=== PATIENT | female | born 1990 | race Caucasian/White ===

== ENCOUNTER 2019-08-19 17:02 | Observation (INO) | payer OTHER ==
--- OUTSIDE RECORDS SUMMARY | 2019-08-19 17:05 | XMS REPORT | Continuity of Care Document ---
:1990 Author Organization [facility] t Address [address] [place] [address] Care Team Providers Name Role Phone Unavailable Unavailable Unavailable Payers Payer Name Policy Type Policy Number Effective Date Expiration Date S ource Problems This patient has no known problems. Allergies, Adverse Reactions, Alerts Allergy Allergy Status Severity Reaction(s) Onset Inactive Treating Comm ents Source Name Type Date Date Clinician No Known DA Active U RYDER Allergie 03-01 [facility] 00:00: [facility] 00 [facility] Medications This patient has no known medications. Procedures This patient has no known procedures. Results Test Description Test Time Test Comments Results Result [facility] e Comments SURGICAL SPECIMENS 2019-04-18 11:09:00 --------RUN DATE: 04/18/19 [facility] - LAB PAGE 1 RUN TIME: 1109 Specimen Inquiry RUN USER: INTERFACE --------PATIENT: ROSALVA ALONZO LOC: LeonaN POD B U #: [id number] AGE/SX: 29/F ROOM: [facility] RE04/16/19[facility] DR: Shane Navarro MD : 90 BED: 1 DIS: STATUS: ADM IN TLOC: -------- SPEC #: [id number] RECD: 04/16/19 STATUS: BEBE REQ #: [id number] JAMILAH: 04/16/19-[address] [facility] [address]: Shane Navarro MD ENTERED: 04/16/19-1201 SP TYPE: SURG OTHR DR: Sara Mai MD ORDERED: PATHGM5/2, PATH SPEC, H E STAIN/2, IRON STAIN, IHC AB STAIN I, AFB STAIN, PAS STAIN, TRICHROME STAIN, PAS WO.STAIN HISTOLOGY: TISSUE ID BLK PCS CAMILO LEV / PROCEDURE DISPOSITION ____ ___ ___ ___ ___ LIVER WEDGE BX A 1 1 STOMACH RESECT B 1 1 TISSUES: A. LIVER WEDGE BIOPSY - Liver Biopsy (Abdomen) B. STOMACH SUBTOTAL RESECTION - Partial Stomach (Abdomen) CLINICAL HISTORY Morbid Obesity COMMENT Sections of specimen (A) demonstrate liver parenchyma with mild steatosis (approximately 30%). Mild nonspecific inflammation, predominantly consisting of lymphocytes, is identified within portal tracts. A small amount of nonspecific lobular inflammation, predominantly consisting of lymphocytes and rare nonspecific histiocyte aggregates, is also noted. No iron accumulation is identified on an iron stain. No PAS positive diastase resisting globules are identified (PAS stains with and without diastase). A Trichrome stain is performed. Mild fibrosis around some central veins is identified. No fungal elements are identified on a PAS stain. An AFB stain is negative. The findings of the special stains support the morphologic interpretation. FINAL DIAGNOSIS A-LIVER, WEDGE BIOPSY: - Liver parenchyma with mild steatosis. - See comment. B-STOMACH, PARTIAL GASTRECTOMY: - Portion of stomach with mild chronic gastritis. - Negative for H. pylori organisms (H. pylori immunostain). CONTINUED ON NEXT PAGE --------RUN DATE: 04/18/19 [facility] - LAB PAGE 2 RUN TIME: 1109 Specimen Inquiry RUN USER: INTERFACE --------SPEC #: [id number] PATIENT: ROSALVA ALONZO #[id number] (Continued) GROSS DESCRIPTION A-LIVER BIOPSY: The specimen consists of a single piece of red-moreno tissue which measures 1 x 0.5 x 0.5 cm. The specimen is sectioned and submitted in its entirety in a single cassette. B-PARTIAL STOMACH: The specimen consists of a portion of stomach which measures 16 x 3.5 x 2 cm. The serosal surface is partially disrupted, but otherwise is grossly unremarkable. The specimen is sectioned. No gross lesions or masses are identified. Superintendent Tests sections are submitted in a single cassette. RAB/eb MICROSCOPIC DESCRIPTION Microscopic performed. Signed SIGNATURE ON FILE BeachLety MD 04/18/19 1109 -------- END OF REPORT BASIC METABOLIC PANEL 2019-04-17 04:09:00 Test Item Value Reference Range Interpretation Comme nts SODIUM (test code = NA) 136 MMOL/L 136-143 N POTASSIUM (test code = K) 3.9 MMOL/L 3.5-5.1 N CHLORIDE (test code = CL) 103 MMOL/L 98-107 N CARBON DIOXIDE (test code = 21 mmol/L 24-31 L CO2) GLUCOSE (test code = GLU) 125 mg/dL 70-104 H BLOOD UREA NITROGEN (test 5.2 MG/DL 7.0-21.0 L code = BUN) GLOMERULAR FILTRATION RATE >=60 max estimate >60 The estimated glomerular (test code = GFR) filtration rate is computed usingpatient ra ce, age (>18), sex, and serum creatinine. If anyof the neede d data elements are mi ssing the Laboratory clint ot compute an estimation of t he glomerular filtration rate . CREATININE (test code = 0.6 mg/dL 0.8-1.5 L CREAT) CALCIUM (test code = CA) 8.1 mg/dL 8.8-10.2 L [id number] 04:09:00 Test Item Value Reference Range Interpretation Comments MAGNESIUM (test code = MAG) 2.0 mg/dL 1.4-2.6 N [id number] 04:09:00 Test Item Value Reference Range Interpretation Comments PHOSPHOROUS (test code = PHOS) 2.0 mg/dL 2.7-4.5 L CBC W/AUTO [id number] 03:49:00 Test Item Value Reference Range Interpretation Comments WHITE BLOOD CELL (test code = 9.2 x10 3/uL 4.8-10.8 N WBC) RED BLOOD CELL (test code = 4.06 x10 6/uL 4.20-5.40 L RBC) HEMOGLOBIN (test code = HGB) 12.0 g/dL 14.5-20 L HEMATOCRIT (test code = HCT) 37.4 % 37.0-47.0 N MEAN CELL VOLUME (test code = 92.1 fL 81.0-99.0 N MCV) MEAN CELL HGB (test code = MCH) 29.6 pg 27-31 N MEAN CELL HGB CONCENTRATION 32.1 G/DL 33-36.5 L (test code = MCHC) RED CELL DISTRIBUTION WIDTH 13.3 % 12.9-16.9 N (test code = RDW) PLATELET COUNT (test code = 301 150-440 N PLT) MEAN PLATELET VOLUME (test code 9.5 fL 8.9-12.4 N = MPV) NEUTROPHIL % (test code = NT%) 70.1 % 42.2-75.2 N LYMPHOCYTE % (test code = LY%) 21.2 % 20.5-51.1 N MONOCYTE % (test code = MO%) 7.7 % 1.7-9.3 N EOSINOPHIL % (test code = EO%) 0.5 % 0.0-7.0 N BASOPHIL % (test code = BA%) 0.3 % 0-2.5 N NEUTROPHIL # (test code = NT#) 6.46 x10 3/uL 1.80-7.70 N LYMPHOCYTE # (test code = LY#) 1.96 x10 3/uL 1.00-4.80 N MONOCYTE # (test code = MO#) 0.71 x10 3/uL 0.00-0.80 N EOSINOPHIL # (test code = EO#) 0.05 x10 3/uL 0.00-0.45 N BASOPHIL # (test code = BA#) 0.03 x10 3/uL 0.0-0.20 N COMPREHENSIVE METABOLIC [id number] 13:23:00 Test Item Value Reference Range Interpretation Comments SODIUM (test code = 141 MMOL/L 136-143 N NA) POTASSIUM (test 4.2 MMOL/L 3.5-5.1 N code = K) CHLORIDE (test code 101 MMOL/L 98-107 N = CL) CARBON DIOXIDE 23 mmol/L 24-31 L (test code = CO2) GLUCOSE (test code 99 mg/dL 70-104 N = GLU) BLOOD UREA NITROGEN 11.5 MG/DL 7.0-21.0 N (test code = BUN) GLOMERULAR >=60 max >60 The estimated FILTRATION RATE estimate glomerular (test code = GFR) filtration rate is computed usingpatient ra ce, age (>18), sex, and serum creatinin e. If anyof the ne eded data elements a re missing the Laboratory clint ot compute an estimation of t he glomerular filtration rate . CREATININE (test 0.8 mg/dL 0.8-1.5 N code = CREAT) TOTAL PROTEIN (test 6.4 g/dL 6.3-8.3 N code = PROT) ALBUMIN (test code 4.5 G/DL 3.5-5.0 N = ALB) CALCIUM (test code 9.9 mg/dL 8.8-10.2 N = CA) BILIRUBIN TOTAL 0.3 mg/dL 0.2-1.0 N (test code = BILT) SGOT/AST (test code 29 IU/L 10-34 N = AST) SGPT/ALT (test code 50 U/L 10-36 H = ALT) ALKALINE 74 U/L 32-104 N PHOSPHATASE (test code = ALKP) PROTHROMBIN [id number] 13:22:00 Test Item Value Reference Range Interpretation Comments PROTHROMBIN TIME 11.6 SECONDS 10.3-12.9 N PATIENT (test code = PTP) INTERNATIONAL 1.00 INR UNIT 0.9-1.11 N The INR is us eful only NORMAL RATIO (test for monit oring code = INR) anticoagulant therapy.It may be unreliable in t he initial phase o f antigoagulation and in unstable patien ts. Indication for Anticoagulation Recommend ed INR 1. Prevention o f venous thomboembolism 2.0-3.0in high -risk patients; treat ment of venousthrombosi s and pulmonary embol ism aftera course o f heparin; preven tion of systemicembolis m in a variety of cond itions, including atria l fibrillation an d prothetic tissu e heart valves, 2. Pros thetic mechanical hear t valves; 2.5-3.5recurren t systemic emboli sm. THROMBOPLASTIN TIME [id number] 13:22:00 Test Item Value Reference Range Interpretation Comments THROMBOPLASTIN TIME 31.4 SECONDS 26.0-35.9 N INTERPRE TATIVE PARTIAL (test code = DATA: erapeutic PTT) range: Unfractionated heparin:47 - 71 seconds Argatroban:1.5 to 3 times the basel ine PTT UR HCG [id number] 13:02:00 Test Item Value Reference Range Interpretation Comments UR HCG QUAL (test code = HCGQLU) NEGATIVE NEGATIVE CBC W/AUTO [id number] 12:48:00 Test Item Value Reference Range Interpretation Comments WHITE BLOOD CELL (test code = 5.8 x10 3/uL 4.8-10.8 N WBC) RED BLOOD CELL (test code = 4.40 x10 6/uL 4.20-5.40 N RBC) HEMOGLOBIN (test code = HGB) 13.1 g/dL 14.5-20 L HEMATOCRIT (test code = HCT) 40.6 % 37.0-47.0 N MEAN CELL VOLUME (test code = 92.3 fL 81.0-99.0 N MCV) MEAN CELL HGB (test code = MCH) 29.8 pg 27-31 N MEAN CELL HGB CONCENTRATION 32.3 G/DL 33-36.5 L (test code = MCHC) RED CELL DISTRIBUTION WIDTH 13.8 % 12.9-16.9 N (test code = RDW) PLATELET COUNT (test code = 314 150-440 N PLT) MEAN PLATELET VOLUME (test code 10.0 fL 8.9-12.4 N = MPV) NEUTROPHIL % (test code = NT%) 61.1 % 42.2-75.2 N LYMPHOCYTE % (test code = LY%) 29.4 % 20.5-51.1 N MONOCYTE % (test code = MO%) 5.2 % 1.7-9.3 N EOSINOPHIL % (test code = EO%) 3.3 % 0.0-7.0 N BASOPHIL % (test code = BA%) 0.7 % 0-2.5 N NEUTROPHIL # (test code = NT#) 3.53 x10 3/uL 1.80-7.70 N LYMPHOCYTE # (test code = LY#) 1.70 x10 3/uL 1.00-4.80 N MONOCYTE # (test code = MO#) 0.30 x10 3/uL 0.00-0.80 N EOSINOPHIL # (test code = EO#) 0.19 x10 3/uL 0.00-0.45 N BASOPHIL # (test code = BA#) 0.04 x10 3/uL 0.0-0.20 N SURGICAL [id number] 15:22:00 RUN DATE: 03/05/19 [facility] - LAB PAGE 1 RUN TIME: 1522 Specimen Inquiry RUN USER: INTERFACE PATIENT: ROSALVA ALONZO LOC: NONA U #: [id number] AGE/SX: 28/F ROOM: RE03/02/19REG DR: Shane Navarro MD : 90 BED: DIS: STATUS: [facility] TLOC: SPEC #: [id number] RECD: 03/02/19 STATUS: BEBE REQ #: [id number] JAMILAH: 03/02/19 [facility] DR: Shane Navarro MD ENTERED: 03/02/19 SP TYPE: SURG OTHR DR: ORDERED: PATHGM4/2, PATH SPEC, H E STAIN/2 HISTOLOGY: TISSUE ID BLK PCS CAMILO LEV / PROCEDURE DISPOSITION ____ ___ ___ ___ ___ ANTRUM BIOPSYA 1 3 1 GE JUNCTION B 1 3 1 TISSUES: A. ANTRUM BIOPSY - Antrum Bx B. GASTRO-ESOPHAGEAL JUNCTION BIOPSY - GE Junction Bx CLINICAL HISTORY GERD FINAL DIAGNOSIS A-STOMACH, ANTRUM, BIOPSY: - Oxyntic type gastric mucosa with no specific diagnostic alteration. - No Helicobacter pylori-like microorganisms identified on routine H E stain. - No intestinal metaplasia, dysplasia or malignancy identified. B-GE JUNCTION, BIOPSY: - Squamous mucosa with features compatible with reflux. - No glandular epithelium or intestinal metaplasia identified. GROSS DESCRIPTION A-ANTRUM BIOPSY: Two fragments of pink soft tissue, 0.3 cm each. Entirely submitted in "A". B-GE JUNCTION BIOPSY: Two fragments of pink soft tissue, 0.2 and 0.4 cm. Entirely submitted in "B". YG/eb MICROSCOPIC DESCRIPTION Microscopic performed. Signed SIGNATURE ON FELIZ BlancGeorgiana 03/05/19 1522 END OF REPORT UR HCG [id number] 08:16:00 Test Item Value Reference Range Interpretation Comments UR HCG QUAL (test code = HCGQLU) NEGATIVE NEGATIVE
[2019-08-19 17:54] VITALS: BP 162/75
[2019-08-19 17:55] VITALS: TEMP 98.8
--- NOTE | 2019-08-19 18:01 | P.HP ---
Certification for Inpatient Patient admitted to: Observation With expected LOS: <2 Midnights Patient will require the following post-hospital care: None Practitioner: I am a practitioner with admitting privileges, knowledge of patient current condition, hospital course, and medical plan of care. Services: Services provided to patient in accordance with Admission requirements found in Title 42 Section 412.3 of the Code of Federal Regulations Patient History Date of Service: 08/19/19 Reason for admission: Cough and fever History of Present Illness: 29-year-old with history of ADHD admitted for cough, fever at home of 100.7, worsening symptoms since the last 3 days, family members including kids with similar symptoms. Presented to [facility] and was noted to have bilateral infiltrates on chest x-ray. Vital signs remained stable including sat 97% on room air. Patient was transferred there on the ER physician's insistent because of possibility of wheezing. On presentation patient is seen ambulating in the room. She is talking without no distress. O2 sats remained above 96% on room air. She is not tachypneic. She will be discharged home on Zithromax/steroid/guaifenesin and advice to follow up with PCP in the next 3-5 days. Advised to dose practised social distancing as well as wear mask around the house. Patient was advised to come back to the ER if worsening shortness of breath Home Medications: Albuterol Sulfate [Albuterol Sulfate Hfa] 8.5 gm IH Q6HR PRN #1 hfa.aer.ad 08/19/19 Azithromycin [Zithromax] 500 mg PO DAILY #3 tablet 08/19/19 Dexamethasone [Decadron] 6 mg PO BID #14 tablet 08/19/19 Guaifenesin [Mucus ER] 1,200 mg PO BID #14 tab.er.12h 08/19/19 Guaifenesin [Mucus Relief] 400 mg PO Q4HR PRN #30 tablet 08/19/19 Review of Systems 10-point ROS is otherwise unremarkable Physical Examination - Vital Signs Temperature: 98.8 F Blood Pressure: 162/75 Pulse: 90 Respirations: 17 Pulse Ox (%): 98 - Physical Exam General: Alert, In no apparent distress, Obese HEENT: Atraumatic, Normocephalic, PERRLA Neck: Supple, 2+ carotid pulse no bruit, JVD not distended Respiratory: Normal air movement, Expiratory wheezes (left base with cough spell) Cardiovascular: Normal pulses, Regular rate/rhythm, Normal S1 S2 Gastrointestinal: Normal bowel sounds, Soft and benign, Non-distended Musculoskeletal: No clubbing, No swelling Neurological: Normal speech, Normal strength at 5/5 x4 extr, Normal tone Assessment and Plan - Problems (Diagnosis) (1) Pneumonia due to 2019 novel coronavirus Current Visit: Yes Status: Acute - Advance Directives Does patient have a Living Will: No Does patient have a Durable POA for Healthcare: No Physician Review: Patient Assessed, Agree with Above Assessment and Plan Physician Review Additional Text: # B/l Pneumonia - noted infiltrate on CT scan -since stable symptoms , pt can be dc home - start steroids /Albuterol MDI prn /zithromax dailyx3 /Guaifenesin prn - Advised to return to ER if worsening SOB Time Spent Managing Pts Care (In Minutes): 60
[2019-08-19 18:03] VITALS: O2SAT 98; BMI 34.2
[2019-08-19] MEDS ORDERED: AMLODIPINE 5 MG TAB PO ONE (18:06)
--- NOTE | 2019-08-19 18:07 | P.DS ---
Admission Date: 08/19/19 Discharge Date: 08/19/19 Disposition: ROUTINE DISCHARGE Discharge Condition: FAIR Reason for Admission: Cough and fever - Problems (1) Pneumonia due to 2019 novel coronavirus Current Visit: Yes Status: Acute Brief History of Present Illness: 29-year-old with history of ADHD admitted for cough, fever at home of 100.7, worsening symptoms since the last 3 days, family members including kids with similar symptoms. Presented to [facility] and was noted to have bilateral infiltrates on chest x-ray. Vital signs remained stable including sat 97% on room air. Patient was transferred there on the ER physician's insistent because of possibility of wheezing. On presentation patient is seen ambulating in the room. She is talking without no distress. O2 sats remained above 96% on room air. She is not tachypneic. She will be discharged home on Zithromax/steroid/guaifenesin and advice to follow up with PCP in the next 3-5 days. Advised to dose practised social distancing as well as wear mask around the house. Patient was advised to come back to the ER if worsening shortness of breath Hospital Course: As above Vital Signs/Physical Exam: Temp Pulse Resp BP Pulse Ox 98.8 F 90 17 162/75 H 98 08/19/19 18:04 08/19/19 18:04 08/19/19 18:04 08/19/19 18:04 08/19/19 18:04 General: Alert, In no apparent distress, Oriented x3, Obese HEENT: Atraumatic, Normocephalic, PERRLA Neck: Supple, 2+ carotid pulse no bruit, JVD not distended Respiratory: Normal air movement, Expiratory wheezes (left base) Cardiovascular: Normal pulses, Regular rate/rhythm, Normal S1 S2 Gastrointestinal: Normal bowel sounds, Soft and benign, Non-distended Musculoskeletal: No clubbing, No swelling Neurological: Normal speech, Normal strength at 5/5 x4 extr Home Medications: Albuterol Sulfate [Albuterol Sulfate Hfa] 8.5 gm IH Q6HR PRN #1 hfa.aer.ad 08/19/19 Amlodipine Besylate [Norvasc] 5 mg PO DAILY #30 tablet 08/19/19 Azithromycin [Zithromax] 500 mg PO DAILY #3 tablet 08/19/19 Dexamethasone [Decadron] 6 mg PO BID #14 tablet 08/19/19 Guaifenesin [Mucus ER] 1,200 mg PO BID #14 tab.er.12h 08/19/19 Guaifenesin [Mucus Relief] 400 mg PO Q4HR PRN #30 tablet 08/19/19 New Medications: Albuterol Sulfate [Albuterol Sulfate Hfa] 8.5 gm IH Q6HR PRN #1 hfa.aer.ad PRN Reason: Shortness Of Breath Dexamethasone [Decadron] 6 mg PO BID #14 tablet Guaifenesin [Mucus ER] 1,200 mg PO BID #14 tab.er.12h Guaifenesin [Mucus Relief] 400 mg PO Q4HR PRN #30 tablet PRN Reason: Cough Amlodipine Besylate [Norvasc] 5 mg PO DAILY #30 tablet Azithromycin [Zithromax] 500 mg PO DAILY #3 tablet Patient Discharge Instructions: -Follow PCP in 1 week Diet: Regular Activity: Ad lillian Time spent managing pt's care (in minutes): 35
== END 2019-08-19 19:32 | disposition home or self-care (01) ==
LOC: 4TH 17:02
PROVIDERS: ADMIT Internal Medicine; ATTEND Internal Medicine
DX: U07.1 COVID-19 (principal); J12.89 Other viral pneumonia; F90.9 Attention-deficit hyperactivity disorder, unspecified type; Z79.899 Other long term (current) drug therapy
CPT/HCPCS: G0379; G0378 ×2

== ENCOUNTER 2019-08-19 20:17 | Emergency (ER) | payer OTHER ==
--- OUTSIDE RECORDS SUMMARY | 2019-08-19 20:19 | XMS REPORT | Continuity of Care Document ---
:1990 Author Organization [facility] t Address [address] [place] [address] Care Team Providers Name Role Phone Unavailable Unavailable Unavailable Payers Payer Name Policy Type Policy Number Effective Date Expiration Date S ource Problems This patient has no known problems. Allergies, Adverse Reactions, Alerts Allergy Allergy Status Severity Reaction(s) Onset Inactive Treating Comm ents Source Name Type Date Date Clinician No Known DA Active U RYDER Allergie 03-01 [facility] 00:00: [facility] 00 [facility] Medications This patient has no known medications. Procedures This patient has no known procedures. Results Test Description Test Time Test Comments Results Result [facility] e Comments SURGICAL SPECIMENS 2019-04-18 11:09:00 --------RUN DATE: 04/18/19 [facility] - LAB PAGE 1 RUN TIME: 1109 Specimen Inquiry RUN USER: INTERFACE --------PATIENT: ROSALVA ALONZO LOC: LeonaN POD B U #: [id number] AGE/SX: 29/F ROOM: [facility] RE04/16/19[facility] DR: Shane Navarro MD : 90 BED: 1 DIS: STATUS: ADM IN TLOC: -------- SPEC #: [id number] RECD: 04/16/19 STATUS: BEBE REQ #: [id number] JAMILAH: 04/16/19-1033 [facility] DR: Shane Navarro MD ENTERED: 04/16/19-1201 SP [...] CONTINUED ON NEXT PAGE --------RUN DATE: 04/18/19 [facility] - LAB PAGE 2 RUN TIME: 1109 Specimen Inquiry RUN USER: INTERFACE --------SPEC #: [id number] PATIENT: ROSALVA ALONZO #[id number] (Continued) GROSS DESCRIPTION A-LIVER BIOPSY: The specimen [...] No gross lesions or masses are identified. Assessment Manager sections are submitted in a single cassette. [...] code = CA) 8.1 mg/dL 8.8-10.2 L [id number] 04:09:00 Test Item Value Reference Range Interpretation Comments MAGNESIUM (test code = MAG) 2.0 mg/dL 1.4-2.6 N [id number] 04:09:00 Test Item Value Reference Range Interpretation Comments PHOSPHOROUS (test code = PHOS) 2.0 mg/dL 2.7-4.5 L CBC W/AUTO [id number] 03:49:00 Test Item Value Reference Range Interpretation [...] 0.03 x10 3/uL 0.0-0.20 N COMPREHENSIVE METABOLIC [id number] 13:23:00 Test Item Value Reference Range Interpretation [...] N PHOSPHATASE (test code = ALKP) PROTHROMBIN [id number] 13:22:00 Test Item Value Reference Range Interpretation [...] 2.5-3.5recurren t systemic emboli sm. THROMBOPLASTIN TIME [id number] 13:22:00 Test Item Value Reference Range Interpretation Comments THROMBOPLASTIN TIME 31.4 SECONDS 26.0-35.9 N INTERPRE TATIVE PARTIAL (test code = DATA: erapeutic PTT) range: Unfractionated heparin:47 - 71 seconds Argatroban:1.5 to 3 times the basel ine PTT UR HCG [id number] 13:02:00 Test Item Value Reference Range Interpretation Comments UR HCG QUAL (test code = HCGQLU) NEGATIVE NEGATIVE CBC W/AUTO [id number] 12:48:00 Test Item Value Reference Range Interpretation [...] BA#) 0.04 x10 3/uL 0.0-0.20 N SURGICAL [id number] 15:22:00 RUN DATE: 03/05/19 [facility] - LAB PAGE 1 RUN TIME: 1522 Specimen Inquiry RUN USER: INTERFACE PATIENT: ROSALVA ALONZO LOC: NONA U #: [id number] AGE/SX: 28/F ROOM: RE03/02/19REG DR: Shane Navarro MD : 90 BED: DIS: STATUS: [facility] TLOC: SPEC #: [id number] RECD: 03/02/19 STATUS: BEBE REQ #: [id number] JAMILAH: 03/02/19 [facility] DR: Shane Navarro MD ENTERED: 03/02/19 SP [...] 03/05/19 1522 END OF REPORT UR HCG [id number] 08:16:00 Test Item Value Reference Range Interpretation Comments UR HCG QUAL (test code = HCGQLU) NEGATIVE NEGATIVE
[2019-08-19] MEDS ORDERED: AZITHROMYCIN 250 MG TAB ONE (21:22)
[2019-08-19] MEDS ORDERED: LORAZEPAM 1 MG TABLET ONE (21:23)
[2019-08-19] MEDS ORDERED: IPRATROPIUM BROM 0.5MG/2.5ML ONE (21:23)
[2019-08-19] MEDS ORDERED: ALBUTEROL 2.5 MG/3 ML NEB SOL ONE (21:23)
[2019-08-19] MEDS ORDERED: dexAMETHasone 4 MG TAB ONE (21:23)
--- NOTE | 2019-08-19 21:57 | ER ---
Nurse's Notes [facility] Name: Dian Salinas Age: 29 yrs Sex: Female : 1990 Arrival Date: 08/19/2019 Time: 20:17 Bed 20 Private MD: Diagnosis: Pneumonia due to other specified infectious organisms Presentation: 08/18 20:27 Chief complaint: Patient states: I was seen at [place], they found bilateral pneumonia, sg the physician at [place] said that I should be admitted and sent me here to be a patient upstairs via ambulance. They tested me for COVID 19 as well. The doctor here upstairs came into my room and told me he was going to be discharging me to home without even assessing me, Im so short of breath and just weak, they expected me to walk across the street to get my car from [place], I cant breath well enough to walk that far, so I didn't know what else to do. Im just so sick. Coronavirus screen: Patient reports a cough. Patient reports shortness of breath or difficulty breathing. Patient reports a measured and/or subjective temperature greater than 100.4F. Patient denies travel on a cruise ship or to a country the [facility] currently lists as an affected area. Prior COVID test collected on: today. Ebola Screen: Patient negative for fever greater than or equal to 101.5 degrees Fahrenheit, and additional compatible Ebola Virus Disease symptoms Patient denies exposure to infectious person. Patient denies travel to an Ebola-affected area in the 21 days before illness onset. No symptoms or risks identified at this time. Initial Sepsis Screen: Does the patient meet any 2 criteria? RR > 20 per min. HR > 90 bpm. Does the patient have a suspected source of infection? No. Patient's initial sepsis screen is negative. Risk Assessment: Do you want to hurt yourself or someone else? Patient reports no desire to harm self or others. Onset of symptoms was August 19, 2019. Care prior to arrival: None. Transition of care: patient was not received from another setting of care. 20:27 Acuity: SAMUEL 3 sg 20:27 Method Of Arrival: Wheelchair sg Triage Assessment: 20:27 General: Appears uncomfortable, ill, Behavior is cooperative, agitated, crying. Neuro: sg Level of Consciousness is awake, alert, obeys commands, Oriented to person, place, time, situation, Speech is normal, Facial symmetry appears normal. Cardiovascular: Capillary refill is brisk in bilateral fingers. Respiratory: Airway is patent Respiratory effort is even, labored, Respiratory pattern is symmetrical, tachypnea pt is tearful and crying during triage the patient has mild shortness of breath. Derm: Skin is intact, Skin is clammy, Skin is pink, Skin temperature is cool. Musculoskeletal: Circulation, motion, and sensation intact. Range of motion: intact in all extremities. Historical: - Allergies: 20:36 No Known Allergies; sg - PMHx: 20:36 None; sg - PSHx: 20:36 Bariatric Sx; sg - Immunization history:: Adult Immunizations up to date. - Social history:: Smoking status: Patient denies any tobacco usage or history of. Patient/guardian denies using alcohol, street drugs, The patient lives with family. - Family history:: not pertinent. Screenin:53 Abuse screen: Denies threats or abuse. Denies injuries from another. Nutritional mg2 screening: No deficits noted. Tuberculosis screening: No symptoms or risk factors identified. Fall Risk None identified. Assessment: 20:47 General: Appears in no apparent distress. comfortable, Behavior is calm, cooperative. mg2 20:53 Pain: Complains of pain in head Pain currently is 5 out of 10 on a pain scale. Quality mg2 of pain is described as aching, Pain began gradually, Is intermittent. Neuro: Level of Consciousness is awake, alert, obeys commands, Oriented to person, place, time, situation. Cardiovascular: Capillary refill < 3 seconds Patient's skin is warm and dry. Respiratory: Reports shortness of breath at rest Airway is patent Respiratory effort is even, unlabored, Respiratory pattern is regular, symmetrical. GI: No signs and/or symptoms were reported involving the gastrointestinal system. : No signs and/or symptoms were reported regarding the genitourinary system. EENT: No signs and/or symptoms were reported regarding the EENT system. Derm: Skin is intact, is healthy with good turgor, Skin is pink, warm \T\ dry. normal. Musculoskeletal: Circulation, motion, and sensation intact. Capillary refill < 3 seconds. 21:10 Reassessment: at bedside assessing pt at this time, speaking with patient sg about POC and results that were faxed on pt behalf to facility from [place]. pt stated understanding of results and POC. 22:00 Reassessment: Patient appears in no apparent distress at this time. Patient is alert, sg oriented x 3, equal unlabored respirations, skin warm/dry/pink. spoke with pt in regards to transportation to [place] to personal vehicle, pt reports that her mother is here in the parking lot to transport pt to [place], pt to be dc to home Patient states feeling better. Vital Signs: 20:27 BP 152 / 101; Pulse 112; Resp 22; Temp 98.9; Pulse Ox 94% on R/A; Pain 5/10; sg 21:33 BP 116 / 72; Pulse 100; Resp 18; Temp 98.9; Pulse Ox 100% on Nebulizer Mask; mg2 22:08 BP 120 / 78; Pulse 98; Resp 18; Temp 98.5; Pulse Ox 100% on R/A; mg2 ED Course: 20:17 Patient arrived in ED. ds1 20:18 Abhijeet Wolf MD is Attending Physician. ma2 20:27 Arm band placed on. sg 20:35 Hamzah Sotelo, CHIQUI is Primary Nurse. mg2 20:36 Triage completed. sg 20:53 No provider procedures requiring assistance completed. mg2 20:54 Patient has correct armband on for positive identification. Pulse ox on. NIBP on. Door mg2 closed. Warm blanket given. Administered Medications: 21:33 Drug: Albuterol - atroVENT (3:1) (2.5 mg - 0.5 mg) 3 ml Route: Nebulizer; mg2 21:33 Drug: AZITHromycin 500 mg Route: PO; mg2 21:33 Drug: Ativan 1 mg Route: PO; mg2 21:33 Drug: Dexamethasone 10 mg Route: PO; mg2 Outcome: 21:57 Discharge ordered by . ma2 22:09 Discharged to home ambulatory. mg2 22:09 Condition: good 22:09 Discharge instructions given to patient, Instructed on discharge instructions, follow up and referral plans. Demonstrated understanding of instructions, follow-up care. 22:09 Patient left the ED. mg2 Signatures: Vicente Lauren RN RN sg PisanoTricia casillas ds1 Abhijeet Wolf MD MD ma2 Hamzah Sotelo RN RN mg2 Corrections: (The following items were deleted from the chart) 20:54 20:47 General: Appears mg2 mg2 20:55 20:36 BP 152 / 101; Pulse 112bpm; Resp 22bpm; Pulse Ox 94% RA; Pain 10; sg sg 08/19 01:30 08/18 22:10 BP 120 / 78; Pulse 98bpm; Resp 18bpm; Pulse Ox 100% RA; Temp 98.5F; mg2 mg2
--- NOTE | 2019-08-19 21:57 | EDPHYS ---
Physician Documentation [facility] Name: Dian Salinas Age: 29 yrs Sex: Female : 1990 Arrival Date: 08/19/2019 Time: 20:17 Bed 20 Private MD: ED Physician Abhijeet Wolf HPI: 08/18 21:48 This 29 yrs old Female presents to ER via Wheelchair with complaints of ma2 Breathing Difficulty - SOB. 21:48 The patient has shortness of breath during heavy activity. Onset: The symptoms/episode ma2 began/occurred gradually, 2 day(s) ago. Associated signs and symptoms: Pertinent positives: non-productive cough, Pertinent negatives: productive cough, fever, loss of consciousness, nausea. Severity of symptoms: At their worst the symptoms were mild in the emergency department the symptoms have improved. The patient has not experienced similar symptoms in the past. she was transferred from [place] for pneumonia and possible covid-19, evaluated by dr. ibarra and then was discharged after few hours. she was not happy as she was asked to walk to her car in [place] and she incurred charges for ambulance transfer and she did not need admission in the 1st place. i re-evaluated her, her symptoms are under controlled, has pneumonia on xray but lab are wnl and her vs are wnl, breathing comfortably, risk of admission outweigh benefit and she will better benefit from staying home. i explained that to her and apologized about her bad experience. . Historical: - Allergies: 20:36 No Known Allergies; sg - PMHx: 20:36 None; sg - PSHx: 20:36 Bariatric Sx; sg - Immunization history:: Adult Immunizations up to date. - Social history:: Smoking status: Patient denies any tobacco usage or history of. Patient/guardian denies using alcohol, street drugs, The patient lives with family. - Family history:: not pertinent. ROS: 21:54 All other systems are negative. ma2 21:54 Constitutional: Negative for fever, chills, and weight loss. ma2 21:54 All other systems are negative. Exam: 21:54 Constitutional: This is a well developed, well nourished patient who is awake, alert, ma2 and in no acute distress. Head/Face: Normocephalic, atraumatic. Eyes: Pupils equal round and reactive to light, extra-ocular motions intact. Lids and lashes normal. Conjunctiva and sclera are non-icteric and not injected. Cornea within normal limits. Periorbital areas with no swelling, redness, or edema. ENT: Nares patent. No nasal discharge, no septal abnormalities noted. Tympanic membranes are normal and external auditory canals are clear. Oropharynx with no redness, swelling, or masses, exudates, or evidence of obstruction, uvula midline. Mucous membranes moist. Neck: Trachea midline, no thyromegaly or masses palpated, and no cervical lymphadenopathy. Supple, full range of motion without nuchal rigidity, or vertebral point tenderness. No Meningismus. Chest/axilla: Normal chest wall appearance and motion. Nontender with no deformity. No lesions are appreciated. Cardiovascular: Regular rate and rhythm with a normal S1 and S2. No gallops, murmurs, or rubs. Normal PMI, no JVD. No pulse deficits. Respiratory: Lungs have equal breath sounds bilaterally, clear to auscultation and percussion. No rales, rhonchi or wheezes noted. No increased work of breathing, no retractions or nasal flaring. Abdomen/GI: Soft, non-tender, with normal bowel sounds. No distension or tympany. No guarding or rebound. No evidence of tenderness throughout. MS/ Extremity: Pulses equal, no cyanosis. Neurovascular intact. Full, normal range of motion. Neuro: Awake and alert, GCS 15, oriented to person, place, time, and situation. Cranial nerves II-XII grossly intact. Motor strength 5/5 in all extremities. Sensory grossly intact. Cerebellar exam normal. Normal gait. Vital Signs: 20:27 BP 152 / 101; Pulse 112; Resp 22; Temp 98.9; Pulse Ox 94% on R/A; Pain 5/10; sg 21:33 BP 116 / 72; Pulse 100; Resp 18; Temp 98.9; Pulse Ox 100% on Nebulizer Mask; mg2 22:08 BP 120 / 78; Pulse 98; Resp 18; Temp 98.5; Pulse Ox 100% on R/A; mg2 MDM: 20:18 Patient medically screened. ma2 21:54 Differential diagnosis: Bronchitis pneumonia, covid-19. Antibiotic administration: Not ma2 indicated. Data reviewed: vital signs, nurses notes. Counseling: I had a detailed discussion with the patient and/or guardian regarding: the historical points, exam findings, and any diagnostic results supporting the discharge/admit diagnosis, the presence of at least one elevated blood pressure reading (>120/80) during this emergency department visit, the need for outpatient follow up. 08/18 21:06 Order name: Recheck Vital Signs; Complete Time: 21:33 ma2 Administered Medications: 21:33 Drug: Albuterol - atroVENT (3:1) (2.5 mg - 0.5 mg) 3 ml Route: Nebulizer; mg2 21:33 Drug: AZITHromycin 500 mg Route: PO; mg2 21:33 Drug: Ativan 1 mg Route: PO; mg2 21:33 Drug: Dexamethasone 10 mg Route: PO; mg2 Disposition: 08/19/19 21:57 Discharged to Home. Impression: Pneumonia due to other specified infectious organisms. - Condition is Stable. - Discharge Instructions: Community-Acquired Pneumonia, Adult. - Medication Reconciliation Form, Thank You Letter, Antibiotic Education, Prescription Opioid Use form. - Follow up: Private Physician; When: Tomorrow; Reason: Continuance of care. Signatures: Vicente Lauren RN RN Abhijeet Wolf MD MD ma2 Hamzah Sotelo RN RN mg2 Corrections: (The following items were deleted from the chart) 22:09 21:57 08/19/2019 21:57 Discharged to Home. Impression: Pneumonia due to other specified mg2 infectious organisms. Condition is Stable. Forms are Medication Reconciliation Form, Thank You Letter, Antibiotic Education, Prescription Opioid Use. Follow up: Private Physician; When: Tomorrow; Reason: Continuance of care. ma2
[2019-08-19 22:15] VITALS: TEMP 98.9
[2019-08-19 22:16] VITALS: BP 116/72; O2SAT 100
== END 2019-08-19 22:09 | disposition home or self-care (01) ==
LOC: ER 20:17
DX: J16.8 Pneumonia due to other specified infectious organisms (principal)
CPT/HCPCS: 99284; J8540